=== PATIENT | female | born 1955 | race Caucasian/White ===

== ENCOUNTER 2021-07-07 13:12 | Inpatient (IN) | payer OTHER ==
[~2021-07-07] VITALS: Ht 167.6 cm; Wt 121.1 kg
[~2021-07-07 13:12] MED LIST: ATENOLOL 25MG T25 M1; AVELOX400 MG PO; BP MED; MEDROLDOSEPACK PO; NORCO 5-325 TA1 EACH PO; PREDNISONE50 MG PO; PROAIR HFA8.5 GM; SYNTHROID
[2021-07-07 13:16] VITALS: BP 146/73
[2021-07-07] MEDS ORDERED: PLAVIX 75 MG TA75 MG PO (13:21)
[2021-07-07] MEDS ORDERED: LIPITOR40 MG PO (13:21)
[2021-07-07] MEDS ORDERED: NORVASC 2.5 MG2.5 MG PO (13:22)
[2021-07-07] MEDS ORDERED: SERTRALINE HCL100 MG PO (13:22)
[2021-07-07] MEDS ORDERED: ZESTRIL40 MG PO (13:23)
[2021-07-07 15:12] LABS: MPV 7.5 fl. (7.2-11.1)
[2021-07-07 15:14] LABS: HEMATOCRIT 32.7 % (37.0-47.0); HEMOGLOBIN 10.8 gm/dL (12.0-15.0); MCH 29.8 pg (26.0-34.0); MCHC 33.1 g/dL (28.0-37.0); MCV 90.2 fL (80.0-100.0); NUCLEATED RBCS 0 /100WBC; PLATELET COUNT* 269 thou/uL (150-400); RBC 3.63 mil/uL (4.20-5.00); RDW-CV 13.4 % (10.5-14.5); WBC 10.9 thou/uL (4.0-11.0)
[2021-07-07 15:30] LABS: POTASSIUM 3.8 mmol/L (3.5-5.1)
[2021-07-07 15:31] LABS: CALCIUM 8.8 mg/dL (8.5-10.1); CREATININE 1.5 mg/dL (0.6-1.3)
[2021-07-07 15:41] LABS: ALBUMIN 2.9 g/dL (3.4-5.0); MAGNESIUM 2.3 mg/dL (1.8-2.4); TOTAL BILIRUBIN 0.8 mg/dL (<0.1-1.0); TOTAL PROTEIN 6.7 g/dL (6.4-8.2)
[2021-07-07 16:43] LABS: ABSOLUTE LYMPHOCYTES 0.9 thou/uL (0.8-5.3)
[2021-07-07 16:44] LABS: MACROCYTES Occasional; PLATELET ESTIMATE ADEQUATE
[2021-07-07 17:55] VITALS: BP 166/74
[2021-07-07 21:34] VITALS: BP 144/64
[2021-07-08] VITALS (8 sets, daily range): BP systolic 115–165; BP diastolic 45–72
--- NOTE | 2021-07-08 08:15 | EKG ---
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 : 1955 Requested By: Isa Jean Order Number: [id number] MD: Scott Chowdhury Measurements Intervals [place] Rate: 63 P: 45 IL: 159 QRS: -29 QRSD: 110 T: 26 QT: 424 QTc: 435 Interpretive Statements Sinus rhythm Borderline left axis deviation Low voltage, precordial leads Delayed R wave progression minimal ST depression, anterolateral leads Compared to ECG 07/12/2010 14:14:44 Low QRS voltage now present ST (T wave) deviation now present T-wave abnormality no longer present Electronically Signed On 07-08-2021 8:14:57 PHARMACEUTICAL DETAILER by Scott Chowdhury [email or web address] <ELECTRONICALLY SIGNED> By: Scott Chowdhury MD, [facility] 07/08/21 0814 1503 1503 Scott Chowdhury MD, [facility] /EPI
[2021-07-08] MEDS ORDERED: ATENOLOL 25 MG25 M1 PO ×2 (15:08→15:09)
[2021-07-08] MEDS ORDERED: ASPIRIN325 PO (15:10)
[2021-07-08] MEDS ORDERED: ZOLOFT25 MG PO (18:58)
[2021-07-08] MEDS ORDERED: LEVOXYL112 MCG PO (18:59)
[2021-07-09] VITALS: BP 125/45
[2021-07-09 04:00] VITALS: BP 128/52
[2021-07-09 08:00] VITALS: BP 127/47
[2021-07-09 20:30] VITALS: BP 173/51
[2021-07-10] VITALS: BP 134/47
[2021-07-10 04:25] VITALS: BP 139/54
[2021-07-10 08:00] VITALS: BP 145/48
[2021-07-10 13:17] VITALS: BP 132/53
[2021-07-10 17:53] VITALS: BP 163/61
[2021-07-11] VITALS (7 sets, daily range): BP systolic 117–183; BP diastolic 41–82
[2021-07-11 09:40] LABS: HEMATOCRIT 33.2 % (37.0-47.0); MCH 29.6 pg (26.0-34.0); MCHC 33.1 g/dL (28.0-37.0); MCV 89.3 fL (80.0-100.0); MPV 6.8 fl. (7.2-11.1); NUCLEATED RBCS 0 /100WBC; PLATELET COUNT* 411 thou/uL (150-400); RBC 3.72 mil/uL (4.20-5.00); RDW-CV 13.6 % (10.5-14.5); WBC 10.6 thou/uL (4.0-11.0)
[2021-07-11 09:54] LABS: ALBUMIN 2.3 g/dL (3.4-5.0); CALCIUM 8.9 mg/dL (8.5-10.1); CREATININE 0.9 mg/dL (0.6-1.3); POTASSIUM 3.9 mmol/L (3.5-5.1); TOTAL BILIRUBIN 0.5 mg/dL (<0.1-1.0); TOTAL PROTEIN 6.7 g/dL (6.4-8.2)
[2021-07-11 10:10] LABS: ABSOLUTE EOSINOPHILS 0.1 thou/uL (0.0-0.7); ABSOLUTE MONOCYTES 0.3 thou/uL (0.0-1.2); ABSOLUTE NEUTROPHILS 9.2 thou/uL (1.6-8.1); MYELOCYTES 2 %; PLATELET ESTIMATE ADEQUATE
[2021-07-12] VITALS (7 sets, daily range): BP systolic 132–157; BP diastolic 35–74
[2021-07-12 04:30] LABS: ABSOLUTE LYMPHOCYTES 0.6 thou/uL (0.8-5.3); ABSOLUTE MONOCYTES 0.1 thou/uL (0.0-1.2); ABSOLUTE NEUTROPHILS 10.1 thou/uL (1.6-8.1); BASOPHILS 0.4 %; EOSINOPHILS 0.1 %; HEMATOCRIT 31.2 % (37.0-47.0); HEMOGLOBIN 10.5 gm/dL (12.0-15.0); LYMPHOCYTES 5.2 %; MCH 29.5 pg (26.0-34.0); MCHC 33.7 g/dL (28.0-37.0); MCV 87.7 fL (80.0-100.0); MONOCYTES 0.7 %; MPV 6.6 fl. (7.2-11.1); NUCLEATED RBCS 0 /100WBC; PLATELET COUNT* 467 thou/uL (150-400); POLYS 93.6 %; RBC 3.55 mil/uL (4.20-5.00); RDW-CV 13.7 % (10.5-14.5); WBC 10.8 thou/uL (4.0-11.0)
[2021-07-12 04:54] LABS: CALCIUM 8.6 mg/dL (8.5-10.1); CREATININE 0.9 mg/dL (0.6-1.3); POTASSIUM 3.9 mmol/L (3.5-5.1)
[2021-07-12] MEDS ORDERED: CEFDINIR300 MG PO (08:02)
[2021-07-12] MEDS ORDERED: DOXYCYCLINE 10100 MG PO (08:02)
[2021-07-12] MEDS ORDERED: PROTONIX40 M2 PO (16:27)
[2021-07-12] MEDS ORDERED: PROAIR HFA8.5 GM INH (16:27)
[2021-07-12] MEDS ORDERED: PREDNISONE 10 M10 MG PO (16:27)
== END 2021-07-12 18:30 | disposition home health service (06) | DRG 177 ==
LOC: M.ERS 13:12 → M.2W 17:23 → M.TBA-ER 17:23 → M.2W 07-08 18:14
PROVIDERS: Nurse Practitioner Family; Student in an Organized Health Care Education/Training Program; ADMIT Internal Medicine; ATTEND Internal Medicine
PROC: 05HF33Z Insertion of Infusion Device into Left Cephalic Vein, Percutaneous Approach (ICD-10-PCS; principal; 2021-07-09)
DX: J15.6 Pneumonia due to other Gram-negative bacteria (principal); J96.01 Acute respiratory failure with hypoxia; E03.9 Hypothyroidism, unspecified; I70.90 Unspecified atherosclerosis; K59.00 Constipation, unspecified; Z20.822 Contact with and (suspected) exposure to COVID-19; Z86.73 Personal history of transient ischemic attack (TIA), and cerebral infarction without residual deficits; Z79.899 Other long term (current) drug therapy